=== PATIENT | female | born 1990 | race Two or more races ===

== ENCOUNTER 2024-03-04 13:00 | Inpatient (IN) | payer OTHER ==
[~2024-03-04] VITALS: Ht 170.2 cm; Wt 78.9 kg
[2024-03-08] VITALS (9 sets, daily range): BP systolic 123–137; BP diastolic 64–84
[2024-03-08] MEDS ORDERED: PRENATAL TABLE1 EAC1 (05:58)
[2024-03-08] MEDS ORDERED: IRON236 MG (05:59)
[2024-03-08] MEDS ORDERED: OXYTOCIN 500 ML IV SCH (06:00)
[2024-03-08] MEDS ORDERED: RINGERS SOLUTION,LACTATED 1,000 ML IV SCH (06:00)
[2024-03-08] MEDS ORDERED: MORPHINE SULFATE 4 MG/ML VIAL IV ONE (07:30)
[2024-03-08 08:04] LABS: HEMATOCRIT 34.5 % (36.0-45.00); HEMOGLOBIN 12.1 g/dL (12.0-15.00); MEAN CELL VOLUME 98.7 fL (80.00-100.00); MEAN CORPUSCULAR HEMOGLOBIN 34.5 pg (27.00-32.0); MEAN CORPUSCULAR HGB CONC 34.9 g/dl (32.0-36.0); PLATELET COUNT 308 K/uL (150-450); RED CELL DISTRIBUTION WIDTH 13.1 % (11.5-14.5)
[2024-03-08 08:26] LABS: INR 0.95; PARTIAL THROMBOPLASTIN TIME 25.1 SECONDS (22.0-34.0); PROTHROMBIN TIME 10.4 SECONDS (9.0-11.5)
[2024-03-08 08:35] LABS: URINE APPEARANCE Clear; URINE BILIRRUBIN Negative (NEGATIVE); URINE BLOOD Large; URINE COLOR Orange; URINE GLUCOSE Negative (NEGATIVE); URINE KETONE Negative (NEGATIVE); URINE LEUKOCYTE Trace; URINE NITRATE Negative; URINE PROTEIN 30 (NEGATIVE); URINE UROBILINOGEN 0.2 E.U./dl
[2024-03-08 08:40] LABS: ALBUMIN 3.1 gm/dL (3.4-5.0); BILIRUBIN TOTAL 0.38 mg/dL (0.3-1.2); CREATININE SERUM 0.54 mg/dL (0.55-1.02); GFR 129.23; GLOBULINA 3.9 G/DL (2.4-3.5); POTASSIUM 4.24 mEq/L (3.5-5.1)
[2024-03-08 08:43] LABS: URINE BACTERIA 585.8 uL (0.0-1933); URINE EPITHELIAL CELLS 55.8 uL (0.0-38.8); URINE WBC 56.4 uL (0.0-23.2)
[2024-03-08] MEDS ORDERED: LIDOCAINE HCL 1% 10ML VIAL IJ ONE (09:25)
[2024-03-08] MEDS ORDERED: ERYTHROMYCIN BASE OPHT 1GM EACH TUBE OP ONE (09:25)
[2024-03-08] MEDS ORDERED: CHLORHEXIDINE GLUCONATE 120 ML BOTTLE TP SCH (10:00)
[2024-03-08] MEDS ORDERED: IBUprofen 400 MG TABLET PO PRN (10:00)
[2024-03-08] MEDS ORDERED: OXYTOCIN 1,000 ML IV SCH (10:00)
[2024-03-08 18:02] LABS: HEMATOCRIT 26.7 % (36.0-45.00); MEAN CELL VOLUME 97.4 fL (80.00-100.00); MEAN CORPUSCULAR HEMOGLOBIN 33.5 pg (27.00-32.0); MEAN CORPUSCULAR HGB CONC 34.4 g/dl (32.0-36.0); PLATELET COUNT 262 K/uL (150-450); RED BLOOD COUNT 2.74 M/uL (4.00-6.00); RED CELL DISTRIBUTION WIDTH 13.2 % (11.5-14.5)
[2024-03-08 18:03] LABS: HEMOGLOBIN 9.2 g/dL (12.0-15.00)
[2024-03-09] VITALS: BP 126/75
[2024-03-09 08:42] VITALS: BP 117/71
[2024-03-09 13:25] VITALS: BP 117/71
[2024-03-09 14:48] VITALS: BP 121/72
[2024-03-09 20:10] VITALS: BP 119/82
[2024-03-10] VITALS: BP 120/78
[2024-03-10 08:36] VITALS: BP 127/72
== END 2024-03-10 10:58 | disposition home or self-care (01) | DRG 768 ==
LOC: LDR 03-08 05:52 → OB/GYN 03-08 05:52
PROVIDERS: ADMIT Obstetrics & Gynecology; ATTEND Obstetrics & Gynecology
PROC: 10E0XZZ Delivery of Products of Conception, External Approach (ICD-10-PCS; principal; 2024-03-08)
PROC: 0DQR0ZZ Repair Anal Sphincter, Open Approach (ICD-10-PCS; 2024-03-08)
PROC: 4A1HXCZ Monitoring of Products of Conception, Cardiac Rate, External Approach (ICD-10-PCS; 2024-03-08)
DX: O70.21 Third degree perineal laceration during delivery, IIIa (principal); Z37.0 Single live birth; Z3A.38 38 weeks gestation of pregnancy; Z20.822 Contact with and (suspected) exposure to COVID-19

== ENCOUNTER 2024-03-14 14:44 | Inpatient (IN) | payer OTHER ==
[~2024-03-14] VITALS: Ht 170.2 cm; Wt 78.9 kg
[~2024-03-14 14:44] MED LIST: IRON236 MG; PRENATAL TABLE1 EAC1
--- NOTE | 2024-03-14 15:21 | NUR ---
SE RECIBE PTE FEMENINA DE 33 ANOS AAOX3 QUIEN REFIERE PRECION GIANA ELEVADA SE REALIZA EKG Y SE ROBER BP MANUAL PTE OBTIENE 170/80. PTE SE UBICA EN PASILLO
[2024-03-14] MEDS ORDERED: LABETALOL HCL 100 MG/20 ML ML IV PUSH ONE (16:45)
--- NOTE | 2024-03-14 17:10 | NUR ---
SE EJECUTAN MUESTRAS DE LABORATORIO MEDIANTE MEDIDAS ASEPTICAS
[2024-03-14] MEDS ORDERED: ACETAMINOPHEN 500 MG GEL..CAP PO ONE (17:15)
[2024-03-14 17:17] LABS: HEMATOCRIT 31.1 % (36.0-45.00); HEMOGLOBIN 10.5 g/dL (12.0-15.00); MEAN CELL VOLUME 98.8 fL (80.00-100.00); MEAN CORPUSCULAR HEMOGLOBIN 33.2 pg (27.00-32.0); MEAN CORPUSCULAR HGB CONC 33.6 g/dl (32.0-36.0); PLATELET COUNT 357 K/uL (150-450); RED BLOOD COUNT 3.14 M/uL (4.00-6.00); RED CELL DISTRIBUTION WIDTH 12.9 % (11.5-14.5)
[2024-03-14 17:17] LABS: PH,URINE 5.5 (5.0-8.0); URINE APPEARANCE Cloudy; URINE BACTERIA 205.3 uL (0.0-1933); URINE BILIRRUBIN Negative (NEGATIVE); URINE BLOOD Large; URINE COLOR Orange; URINE EPITHELIAL CELLS 13.9 uL (0.0-38.8); URINE GLUCOSE Negative (NEGATIVE); URINE KETONE Negative (NEGATIVE); URINE LEUKOCYTE Large; URINE NITRATE Negative; URINE PROTEIN 30 (NEGATIVE); URINE RBC 1032.4 uL (0.0-20.8); URINE UROBILINOGEN 0.2 E.U./dl; URINE WBC 643.4 uL (0.0-23.2)
[2024-03-14 17:52] LABS: ALBUMIN 3.2 gm/dL (3.4-5.0); BILIRUBIN TOTAL 0.36 mg/dL (0.3-1.2); CALCIUM 8.9 mg/dL (8.5-10.1); CREATININE SERUM 0.6 mg/dL (0.55-1.02); GFR 114.43; GLOBULINA 4.1 G/DL (2.4-3.5); MAGNESIUM 1.9 mg/dL (1.8-2.4); POTASSIUM 4.21 mEq/L (3.5-5.1); TOTAL PROTEIN 7.3 gm/dL (6.4-8.2)
--- NOTE | 2024-03-14 18:27 | NUR ---
POR ORDEN MEDICA DE PACIENTE ES TRANSFERIDA A JOEL DE PARTOS PARA ADMISION.
[2024-03-14 18:43] VITALS: BP 156/83
[2024-03-14] MEDS ORDERED: MOTRIN IB200 M1 PO (19:12)
[2024-03-14] MEDS ORDERED: MAGNESIUM SULFATE IN WATER 500 ML IV SCH (19:45)
[2024-03-14] MEDS ORDERED: MAGNESIUM SULFATE IN WATER 100 ML IV ONE ×2 (19:45→20:00)
[2024-03-14] MEDS ORDERED: RINGERS SOLUTION,LACTATED 1,000 ML IV SCH (19:45)
[2024-03-14] MEDS ORDERED: LABETALOL HCL 100 MG/20 ML ML IV ONE (20:00)
[2024-03-14] MEDS ORDERED: LABETALOL HCL 200 MG TABLET PO SCH (21:00)
[2024-03-14 22:00] VITALS: BP 130/72
[2024-03-14 23:14] VITALS: BP 127/69
[2024-03-15 03:36] VITALS: BP 124/73
[2024-03-15 07:13] VITALS: BP 121/72
[2024-03-15] MEDS ORDERED: PNV,CALCIUM 72/IRON/FOLIC ACID 1 TAB TABLET PO SCH (09:00)
[2024-03-15] MEDS ORDERED: ACETAMINOPHEN 500 MG GEL..CAP PO PRN (09:45)
[2024-03-15 10:08] VITALS: BP 119/78
[2024-03-15 16:00] VITALS: BP 102/82
[2024-03-15] MEDS ORDERED: FERROUS SULFATE 325 MG TABLET.EC PO SCH (16:00)
[2024-03-15 19:00] VITALS: BP 146/82
[2024-03-15] MEDS ORDERED: hydrOXYzine PAMOATE 50 MG CAPSULE PO SCH (21:00)
[2024-03-16 00:01] VITALS: BP 146/72
[2024-03-16] MEDS ORDERED: LABETALOL HCL 300 MG TABLET PO SCH (05:00)
[2024-03-16] MEDS ORDERED: TRANDATE300 MG PO (07:42)
[2024-03-16 07:54] VITALS: BP 140/85
== END 2024-03-16 08:30 | disposition home or self-care (01) | DRG 776 ==
LOC: ER 14:46 → OB/GYN 19:07 → LDR 19:07 → OB/GYN 03-15 09:32
PROVIDERS: Emergency Medicine; ADMIT Obstetrics & Gynecology; ATTEND Obstetrics & Gynecology
DX: O16.5 Unspecified maternal hypertension, complicating the puerperium (principal); Z20.822 Contact with and (suspected) exposure to COVID-19